=== PATIENT | female | born 1940 | race Caucasian/White ===

== ENCOUNTER 2022-02-19 12:54 | Outpatient (CLI) | payer MEDICARE, BC, SELFPAY | END 2022-02-19 12:55 | disposition home or self-care (01) | LOC: WOUND 12:55 | PROVIDERS: PCP Physician Assistant Medical; Visit Provider Nurse Practitioner Family | DX: I70.234 Atherosclerosis of native arteries of right leg with ulceration of heel and midfoot (principal); L97.415 Non-pressure chronic ulcer of right heel and midfoot with muscle involvement without evidence of necrosis; I87.311 Chronic venous hypertension (idiopathic) with ulcer of right lower extremity; L97.812 Non-pressure chronic ulcer of other part of right lower leg with fat layer exposed; Q82.0 Hereditary lymphedema | CPT/HCPCS: 97597; 99213 ==

== ENCOUNTER 2022-02-26 09:10 | Outpatient (CLI) | payer MEDICARE, BC, SELFPAY ==
--- NOTE | 2022-02-26 09:30 | CRLHL7_ITS ---
For Patients: As a result of the Century Cures Act, medical imaging exams and procedure reports are released immediately into your electronic medical record. You may view this report before your referring provider. If you have questions, please contact your health care provider. Indication: ABSCESS OF RIGHT ACHILLES TENDON Technique: Noncontrast CT right ankle Please note that all CT scans at this facility use dose modulation, iterative reconstruction, and/or weight-based dosing when appropriate to reduce radiation dose to as low as reasonably achievable. Comparison: 11/09/2021 Findings: Persistent thickening of the Achilles tendon noted although the previously identified collection of fluid within the Achilles tendon has significantly decreased in size. Residual tiny areas of decreased attenuation located within the Achilles tendon are present representing residual areas of edema/inflammation. The overlying skin is thickened, as before. Dense vascular calcifications are present. Subcutaneous edema is present. There is no evidence of osteonecrosis or osteomyelitis. No fracture. Osteoporosis is noted. Impression: Interval near complete resolution of abscess within the Achilles tendon compared to the prior study. Mild residual areas of fluid/edema are present within the tendon. Persistent thickening of the Achilles tendon is noted. Please note that all CT scans at this facility use dose modulation, iterative reconstruction, and/or weight-based dosing when appropriate to reduce radiation dose to as low as reasonably achievable. Dictated by Gio Nolan MD @ 02/26/2022 12:48:26 PM (Electronically Signed)
== END 2022-02-26 09:11 | disposition home or self-care (01) ==
PROVIDERS: PCP Physician Assistant Medical; Visit Provider Physician Assistant Surgical
DX: L03.115 Cellulitis of right lower limb (principal)
CPT/HCPCS: 11042; 73700

== ENCOUNTER 2022-03-05 10:26 | Outpatient (CLI) | payer MEDICARE, BC, SELFPAY | END 2022-03-05 10:27 | disposition home or self-care (01) | LOC: WOUND 10:26 | PROVIDERS: PCP Physician Assistant Medical; Visit Provider Physician Assistant Surgical | DX: I70.235 Atherosclerosis of native arteries of right leg with ulceration of other part of foot (principal); L97.518 Non-pressure chronic ulcer of other part of right foot with other specified severity | CPT/HCPCS: 11043 ==

== ENCOUNTER 2022-03-12 10:48 | Outpatient (CLI) | payer MEDICARE, BC, SELFPAY | END 2022-03-12 10:49 | disposition home or self-care (01) | LOC: WOUND 10:49 | PROVIDERS: PCP Physician Assistant Medical; Visit Provider Physician Assistant Surgical | DX: I70.235 Atherosclerosis of native arteries of right leg with ulceration of other part of foot (principal); L97.518 Non-pressure chronic ulcer of other part of right foot with other specified severity | CPT/HCPCS: 11043 ==

== ENCOUNTER 2022-03-19 10:46 | Outpatient (CLI) | payer MEDICARE, BC, SELFPAY | END 2022-03-19 10:47 | disposition home or self-care (01) | PROVIDERS: PCP Physician Assistant Medical; Visit Provider Physician Assistant Surgical | DX: I70.234 Atherosclerosis of native arteries of right leg with ulceration of heel and midfoot (principal); L97.418 Non-pressure chronic ulcer of right heel and midfoot with other specified severity | CPT/HCPCS: 11043 ==

== ENCOUNTER 2022-03-26 10:47 | Outpatient (CLI) | payer MEDICARE, BC, SELFPAY | END 2022-03-26 10:48 | disposition home or self-care (01) | LOC: WOUND 10:47 | PROVIDERS: PCP Physician Assistant Medical; Visit Provider Physician Assistant Surgical | DX: L97.418 Non-pressure chronic ulcer of right heel and midfoot with other specified severity (principal); I70.234 Atherosclerosis of native arteries of right leg with ulceration of heel and midfoot | CPT/HCPCS: 11043 ==

== ENCOUNTER 2022-04-02 10:55 | Outpatient (CLI) | payer MEDICARE, BC, SELFPAY | END 2022-04-02 10:56 | disposition home or self-care (01) | LOC: WOUND 10:56 | PROVIDERS: PCP Physician Assistant Medical; Visit Provider Physician Assistant Surgical | DX: I70.234 Atherosclerosis of native arteries of right leg with ulceration of heel and midfoot (principal); L97.418 Non-pressure chronic ulcer of right heel and midfoot with other specified severity; I87.311 Chronic venous hypertension (idiopathic) with ulcer of right lower extremity; L97.812 Non-pressure chronic ulcer of other part of right lower leg with fat layer exposed | CPT/HCPCS: 11042; 11043; 11045 ==

== ENCOUNTER 2022-04-09 10:54 | Outpatient (CLI) | payer MEDICARE, BC, SELFPAY | END 2022-04-09 10:55 | disposition home or self-care (01) | LOC: WOUND 10:54 | PROVIDERS: PCP Physician Assistant Medical; Visit Provider Physician Assistant Surgical | DX: I70.234 Atherosclerosis of native arteries of right leg with ulceration of heel and midfoot (principal); L97.418 Non-pressure chronic ulcer of right heel and midfoot with other specified severity; I87.311 Chronic venous hypertension (idiopathic) with ulcer of right lower extremity; L97.812 Non-pressure chronic ulcer of other part of right lower leg with fat layer exposed | CPT/HCPCS: 11042; 11043 ==

== ENCOUNTER 2022-04-16 10:55 | Outpatient (CLI) | payer MEDICARE, BC, SELFPAY | END 2022-04-16 10:56 | disposition home or self-care (01) | PROVIDERS: PCP Physician Assistant Medical; Visit Provider Physician Assistant Surgical | DX: I70.244 Atherosclerosis of native arteries of left leg with ulceration of heel and midfoot (principal); L97.422 Non-pressure chronic ulcer of left heel and midfoot with fat layer exposed | CPT/HCPCS: 11042 ==

== ENCOUNTER 2022-04-23 09:48 | Outpatient (CLI) | payer MEDICARE, BC, SELFPAY | END 2022-04-23 09:49 | disposition home or self-care (01) | LOC: WOUND 09:48 | PROVIDERS: PCP Physician Assistant Medical; Visit Provider Physician Assistant Surgical | DX: I70.234 Atherosclerosis of native arteries of right leg with ulceration of heel and midfoot (principal); L97.418 Non-pressure chronic ulcer of right heel and midfoot with other specified severity | CPT/HCPCS: 11042 ==

== ENCOUNTER 2022-04-30 09:10 | Outpatient (CLI) | payer MEDICARE, BC, SELFPAY | END 2022-04-30 09:11 | disposition home or self-care (01) | LOC: WOUND 09:10 | PROVIDERS: PCP Physician Assistant Medical; Visit Provider Physician Assistant Surgical | DX: I70.234 Atherosclerosis of native arteries of right leg with ulceration of heel and midfoot (principal); L97.418 Non-pressure chronic ulcer of right heel and midfoot with other specified severity | CPT/HCPCS: 11042 ==

== ENCOUNTER 2022-05-07 10:58 | Outpatient (CLI) | payer MEDICARE, BC, SELFPAY | END 2022-05-07 10:59 | disposition home or self-care (01) | LOC: WOUND 10:58 | PROVIDERS: PCP Physician Assistant Medical; Visit Provider Physician Assistant Surgical | DX: I70.234 Atherosclerosis of native arteries of right leg with ulceration of heel and midfoot (principal); L97.418 Non-pressure chronic ulcer of right heel and midfoot with other specified severity | CPT/HCPCS: 15271; 15275; Q4128 ==

== ENCOUNTER 2022-05-14 10:13 | Outpatient (CLI) | payer MEDICARE, BC, SELFPAY | END 2022-05-14 10:14 | disposition home or self-care (01) | LOC: WOUND 10:13 | PROVIDERS: PCP Physician Assistant Medical; Visit Provider Physician Assistant Surgical | DX: I70.234 Atherosclerosis of native arteries of right leg with ulceration of heel and midfoot (principal); L97.418 Non-pressure chronic ulcer of right heel and midfoot with other specified severity; I87.311 Chronic venous hypertension (idiopathic) with ulcer of right lower extremity; L97.812 Non-pressure chronic ulcer of other part of right lower leg with fat layer exposed | CPT/HCPCS: 11042 ==

== ENCOUNTER 2022-05-21 10:30 | Outpatient (CLI) | payer MEDICARE, BC, SELFPAY | END 2022-05-21 10:31 | disposition home or self-care (01) | LOC: WOUND 10:31 | PROVIDERS: PCP Physician Assistant Medical; Visit Provider Physician Assistant Surgical | DX: L89.614 Pressure ulcer of right heel, stage 4 (principal) | CPT/HCPCS: 15275; C5275; Q4121 ==

== ENCOUNTER 2022-05-28 10:24 | Outpatient (CLI) | payer MEDICARE, BC, SELFPAY | END 2022-05-28 10:25 | disposition home or self-care (01) | LOC: WOUND 10:25 | PROVIDERS: PCP Physician Assistant Medical; Visit Provider Physician Assistant Surgical | DX: I87.311 Chronic venous hypertension (idiopathic) with ulcer of right lower extremity (principal); L97.812 Non-pressure chronic ulcer of other part of right lower leg with fat layer exposed; I70.234 Atherosclerosis of native arteries of right leg with ulceration of heel and midfoot; L97.418 Non-pressure chronic ulcer of right heel and midfoot with other specified severity | CPT/HCPCS: 87070; 97597 ==

== ENCOUNTER 2022-06-04 09:57 | Outpatient (CLI) | payer MEDICARE, BC, SELFPAY | END 2022-06-04 09:58 | disposition home or self-care (01) | LOC: WOUND 09:57 | PROVIDERS: PCP Physician Assistant Medical; Visit Provider Physician Assistant Surgical | DX: L89.894 Pressure ulcer of other site, stage 4 (principal) | CPT/HCPCS: 11042 ==

== ENCOUNTER 2022-06-11 10:29 | Outpatient (CLI) | payer MEDICARE, BC, SELFPAY | END 2022-06-11 10:30 | disposition home or self-care (01) | LOC: WOUND 10:29 | PROVIDERS: PCP Physician Assistant Medical; Visit Provider Physician Assistant Surgical | DX: L89.614 Pressure ulcer of right heel, stage 4 (principal) | CPT/HCPCS: 11042 ==

== ENCOUNTER 2022-06-18 10:14 | Outpatient (CLI) | payer MEDICARE, BC, SELFPAY | END 2022-06-18 10:15 | disposition home or self-care (01) | LOC: WOUND 10:14 | PROVIDERS: PCP Physician Assistant Medical; Visit Provider Physician Assistant Surgical | DX: L89.614 Pressure ulcer of right heel, stage 4 (principal); I87.311 Chronic venous hypertension (idiopathic) with ulcer of right lower extremity; L97.219 Non-pressure chronic ulcer of right calf with unspecified severity | CPT/HCPCS: 99213 ==

== ENCOUNTER 2022-06-25 12:48 | Outpatient (CLI) | payer MEDICARE, BC, SELFPAY | END 2022-06-25 12:49 | disposition home or self-care (01) | LOC: WOUND 12:49 | PROVIDERS: PCP Physician Assistant Medical; Visit Provider Physician Assistant Surgical | DX: S81.801A Unspecified open wound, right lower leg, initial encounter (principal) | CPT/HCPCS: 11042 ==

== ENCOUNTER 2022-07-02 10:18 | Outpatient (CLI) | payer MEDICARE, BC, SELFPAY | END 2022-07-02 10:19 | disposition home or self-care (01) | LOC: WOUND 10:19 | PROVIDERS: PCP Physician Assistant Medical; Visit Provider Physician Assistant Surgical | DX: I70.242 Atherosclerosis of native arteries of left leg with ulceration of calf (principal); L97.228 Non-pressure chronic ulcer of left calf with other specified severity; I87.311 Chronic venous hypertension (idiopathic) with ulcer of right lower extremity; L97.818 Non-pressure chronic ulcer of other part of right lower leg with other specified severity | CPT/HCPCS: 11042 ==

== ENCOUNTER 2022-07-16 10:35 | Outpatient (CLI) | payer MEDICARE, BC, SELFPAY | END 2022-07-16 10:36 | disposition home or self-care (01) | LOC: WOUND 10:36 | PROVIDERS: PCP Physician Assistant Medical; Visit Provider Physician Assistant Surgical | DX: I87.311 Chronic venous hypertension (idiopathic) with ulcer of right lower extremity (principal); L97.818 Non-pressure chronic ulcer of other part of right lower leg with other specified severity; Q82.0 Hereditary lymphedema | CPT/HCPCS: 11042; 11045 ==

== ENCOUNTER 2022-08-13 10:15 | Outpatient (CLI) | payer MEDICARE, BC, SELFPAY | END 2022-08-13 10:16 | disposition home or self-care (01) | LOC: WOUND 10:15 | PROVIDERS: Visit Provider Physician Assistant Surgical | DX: I87.311 Chronic venous hypertension (idiopathic) with ulcer of right lower extremity (principal); L97.212 Non-pressure chronic ulcer of right calf with fat layer exposed | CPT/HCPCS: 11042; 11045 ==

== ENCOUNTER 2022-09-03 10:21 | Outpatient (CLI) | payer MEDICARE, BC, SELFPAY | END 2022-09-03 10:22 | disposition home or self-care (01) | LOC: WOUND 10:21 | PROVIDERS: Visit Provider Physician Assistant Surgical | DX: I83.012 Varicose veins of right lower extremity with ulcer of calf (principal); L97.212 Non-pressure chronic ulcer of right calf with fat layer exposed; I87.311 Chronic venous hypertension (idiopathic) with ulcer of right lower extremity; L97.819 Non-pressure chronic ulcer of other part of right lower leg with unspecified severity | CPT/HCPCS: 11042; 11045 ==

== ENCOUNTER 2022-09-08 10:30 | Outpatient (RCR) | payer MEDICARE, BC, SELFPAY ==
--- NOTE | 2022-07-20 13:48 | PT.OPE ---
PT [place] Outpatient Eval PT [facility] Outpatient Eval Start: 07/20/22 13:18 Freq: Status: Active Protocol: Document 07/20/22 13:18 LUTHER (Rec: 07/20/22 13:41 ONUR Desktop) E-signed By Sergey Ahmadi, PT, ATC Physical Therapy Outpatient Evaluation Insurance Information Insurance Name Medicare B Insurance Information/Comments Medicare BC BS Medical Diagnosis M76.61 Achilles tendinitis, right leg Treating Diagnosis R leg/ankle pain Referring MD Daya Dos Santos PA-C Subjective Subjective One year history of wound healing for ulcers on the back of the R lower leg and heel. Has noticed increased soreness and difficulty with ankle movement as a result of all the immobility and resting that has been required. Taking pain medication 4x per day along with Gapapentin. Lives with her in a care home residence. Pain Comments 04/24 with direct contact to any portion of wound along posterior lower leg or calcaneus. 0-1/10 at rest 10 with walking or active movement Date of Last Physician Visit 06/25/22 Current Work Status Retired Preferred Name Pat Precautions Weight Bearing Status Full Weight Bearing Objective Range of Motion SLR R 65, L 85 Ankle DF R -2, L 0 Strength Ankle PF R 4/5, L 5/5 DF, INV, EVER R 4-/5, L 5/5 Palpation Very tender on entirety of R posterior calf, achilles and calcaneus Reduced achilles tendon mobility for elongation or side gliding. Balance & Gait Dependent upon walker. Gait exhibits decreased stride length, absent toe off on R, forward trunk flexion position . Posture Bandaged over entire R lower leg since she is still receiving wound care. Heavy scarring-scabbing exists over posterior calcaneus of right leg. R terminal knee extension deficit of 12 degrees. L knee ext to 0. Assessment Assessment/Impression Sujey is a pleasant 81 year old who is well known in PT from previous care for her R shoulder. She was referred to PT to address mobility restrictions in the R achilles tendon along with pain. She has undergone a year of wound healing to treat ulcers on the back of the lower leg and posterior foot form Atherosclerosis. Contracture of the R achilles has occurred over the past six months from her inactivity and limited WB 'ing. Tightness exists throughout the entire R posterior leg which contributes to her limitation with R ankle DF. Limited ability for direct contact is permitted at any part of the R lower leg or foot due to heightened sensitivity as a result of her wound. Skilled PT is highly recommended to maintain ability for standing and walking. PT needs to address tightness in the entire R posterior leg, facilitate some degree of achilles mobility through scar tissue reduction and mobilization while improving active motion in the R ankle during open and closed chain environments. She has always been a willing participant with her therapy so I wouldn't expect her motivation for improvement to be different at this time. Primary Functional Limitations R ankle ROM and strength. Walking ability. Plan of Care Rehabilitation Potential Fair Physical Therapy Goals 1.Improve R ankle DF: active to 0, passive to 3-4 degrees. 2.Increase R stride length in gait through improved R posterior leg flexibility, SLR to 70 degrees or greater. 3.Improve achilles mobility permitting ease with active PF , DF and alutiiq exercises to facilitate improved circulation to lower leg for wound healing. Coordination/Communication With Referral Source Treatment Plan/Direct Interventions Gait Training,Joint Mobilization,Manual Therapy, Therapeutic Exercises Frequency/Duration 1x per week 12-16 weeks Patient Will Be Discharged From Therapy Independent w/HEP, Independently Progressing Evaluation Billing Untimed Code Treatment Minutes 30 PT Eval No Charge No Complexity Low Certification Information Initial Certification Date 07/20/22 Ending Certification Date 10/18/22 Provider Signature Shows Agreement With POC & Medical Necessity Physician Signature & Date Requested Please Sign/Date Here Physician Comment/Change : Physician NPI Number #
== END 2023-03-03 23:59 | disposition home or self-care (01) ==
PROVIDERS: Visit Provider Physician Assistant Surgical
DX: M76.61 Achilles tendinitis, right leg (principal); Z51.89 Encounter for other specified aftercare
CPT/HCPCS: 97110; 97140; 97161

== ENCOUNTER 2023-01-26 12:26 | Outpatient (CLI) | payer MEDICARE, BC, SELFPAY | END 2023-01-26 12:27 | disposition home or self-care (01) | PROVIDERS: Visit Provider Surgery | DX: I87.333 Chronic venous hypertension (idiopathic) with ulcer and inflammation of bilateral lower extremity (principal); L97.828 Non-pressure chronic ulcer of other part of left lower leg with other specified severity; L97.811 Non-pressure chronic ulcer of other part of right lower leg limited to breakdown of skin; I73.9 Peripheral vascular disease, unspecified; G89.29 Other chronic pain | CPT/HCPCS: 97597; 97598; 99213 ==

== ENCOUNTER 2023-02-02 14:13 | Outpatient (CLI) | payer MEDICARE, BC, SELFPAY | END 2023-02-02 14:14 | disposition home or self-care (01) | LOC: WOUND 14:13 | PROVIDERS: Visit Provider Surgery | DX: I87.331 Chronic venous hypertension (idiopathic) with ulcer and inflammation of right lower extremity (principal); L97.811 Non-pressure chronic ulcer of other part of right lower leg limited to breakdown of skin | CPT/HCPCS: 97597; 97598 ==

== ENCOUNTER 2023-02-09 14:02 | Outpatient (CLI) | payer MEDICARE, BC, SELFPAY | END 2023-02-09 14:03 | disposition home or self-care (01) | LOC: WOUND 14:02 | PROVIDERS: Visit Provider Surgery | DX: I87.331 Chronic venous hypertension (idiopathic) with ulcer and inflammation of right lower extremity (principal); L97.811 Non-pressure chronic ulcer of other part of right lower leg limited to breakdown of skin; G89.29 Other chronic pain; I73.9 Peripheral vascular disease, unspecified | CPT/HCPCS: 97597; 97598 ==

== ENCOUNTER 2023-03-01 14:45 | Outpatient (CLI) | payer MEDICARE, BC, SELFPAY | END 2023-03-01 14:46 | disposition home or self-care (01) | LOC: WOUND 14:45 | PROVIDERS: Visit Provider Nurse Practitioner Family | DX: I87.331 Chronic venous hypertension (idiopathic) with ulcer and inflammation of right lower extremity (principal); L97.812 Non-pressure chronic ulcer of other part of right lower leg with fat layer exposed; L97.818 Non-pressure chronic ulcer of other part of right lower leg with other specified severity; I73.9 Peripheral vascular disease, unspecified | CPT/HCPCS: 97597; 97598 ==

== ENCOUNTER 2023-03-09 14:45 | Outpatient (CLI) | payer MEDICARE, BC, SELFPAY | END 2023-03-09 14:46 | disposition home or self-care (01) | LOC: WOUND 14:45 | PROVIDERS: Visit Provider Surgery | DX: I87.331 Chronic venous hypertension (idiopathic) with ulcer and inflammation of right lower extremity (principal); L97.211 Non-pressure chronic ulcer of right calf limited to breakdown of skin; L97.811 Non-pressure chronic ulcer of other part of right lower leg limited to breakdown of skin; I73.9 Peripheral vascular disease, unspecified; G89.29 Other chronic pain | CPT/HCPCS: 97597; 97598 ==

== ENCOUNTER 2023-03-16 14:53 | Outpatient (CLI) | payer MEDICARE, BC, SELFPAY | END 2023-03-16 14:54 | disposition home or self-care (01) | LOC: WOUND 14:53 | PROVIDERS: Visit Provider Surgery | DX: I87.331 Chronic venous hypertension (idiopathic) with ulcer and inflammation of right lower extremity (principal); L97.811 Non-pressure chronic ulcer of other part of right lower leg limited to breakdown of skin; I73.9 Peripheral vascular disease, unspecified; G89.29 Other chronic pain | CPT/HCPCS: 97597; 97598 ==

== ENCOUNTER 2023-03-22 14:08 | Outpatient (CLI) | payer MEDICARE, BC, SELFPAY ==
--- OUTSIDE RECORDS SUMMARY | 2023-03-22 14:14 | XMS_ITS | CCD ---
Author Name Shawanda Leahy Address [address] [facility] [address] [place] [address] Phone Organization [facility] Phone Care Team Providers Care Radiographer Mammographer Name Role Phone Shawanda Leahy Primary Care Provider Unava ilable Unavailable Chronic Care Management Unavaila ble Summary Purpose DataExchange Insurance Providers Payer name Policy type / Coverage type Covered democrat ID Effective Begin Date Effective End Date Medicare [place] Medicare Part B [id number] Unknown BCBS of [place] Medicare Part B [id number] Unk nown Family history Runs in the family Diagnosis Age At Onset Coronary Artery Disease (CAD) Unknown Father Diagnosis Age At Onset Thyroid Unknown Mother Diagnosis Age At Onset Diabetes Unknown Social History Social History Element Codes Description Effec tive Dates Marital status Unknown 02/21/[address]: 0567611 Former smoker Quit 1984 02/21/[address]: 235975242 No Alcohol Consum ption 02/21/2023 Allergies, Adverse Reactions, Alerts Substance Reaction Codes Entered Date Inactivated Date Status Sulfa Unknown 02/14/2023 No Inactive Date Ac tive ibuprofen RxNorm: 5640 02/14/2023 No Inactive Date Active Problems Condition Codes Effective Dates Condition St atus Basal cell carcinoma ICD-10: C44.91 ICD-9: 173.91 02/23/2023 Active Chronic pain disorder ICD-10: G89.4 ICD-9: 338.4 02/23/2023 Active Chronic ulcer of right leg ICD-10: L97.9 19 ICD-9: 707.10 02/23/2023 Active Collagenous colitis ICD-10: K52.831 ICD-9: 558.9 02/23/2023 Active History of cellulitis ICD-10: Z87.2 ICD-9: V13.3 02/23/2023 Active History of fracture of patella ICD-10: Z 87.81 ICD-9: V15.51 02/23/2023 Active HLD (hyperlipidemia) ICD-10: E78.5 ICD-9: 272.4 02/23/2023 Active HTN (hypertension) ICD-10: I10 ICD-9: 401.9 02/23/2023 Active Mammogram normal ICD-10: ESC7325 ICD-9: V72.5 02/23/2023 Active Osteoarthritis ICD-10: M19.90 ICD-9: 715.90 02/23/2023 Active Osteoporosis ICD-10: M81.0 ICD-9: 733.00 02/23/2023 Active Peripheral vascular disease ICD-10: I73. 9 ICD-9: 443.9 02/23/2023 Active Presbyopia ICD-10: H52.4 ICD-9: 367.4 02/23/2023 Active Ruptured cerebral aneurysm ICD-10: I60.7 ICD-9: 430 02/23/2023 Active S/P trigger finger release ICD-10: Z98.8 90 ICD-9: V45.89 02/23/2023 Active Medications Medication Codes Instructions Start Date Stop Date Status Fill Instructions nabumetone 750 mg tablet RxNorm: 678186 Take 1 Tablet(s) Oral BID 3 02/17/20 24 Active mirtazapine 7.5 mg tablet RxNorm: 581093 Take 1 Tablet(s) Oral QHS every night at bedtime 3 02/17/20 24 Active Colace 2-In-1 8.6 mg-50 mg tablet RxNorm: 7141927 Take 1 Tablet(s) Oral BID as needed 3 06/22/20 23 Active fluticasone propionate 50 mcg/actuation nasal spray,suspension RxNorm: 1377399 Tillar 1 Tillar Nasal BID both nostrils 3 02/17/20 24 Active atorvastatin 20 mg tablet RxNorm: 805071 Take 1 Tablet(s) Oral QHS every night at bedtime QD - Daily 3 02/17/20 24 Active tramadol 50 mg tablet RxNorm: 127246 Give 1 Tablet(s) Oral TID as needed for pain 3 08/21/19 24 Active amlodipine 5 mg tablet RxNorm: 547269 Take 1 Tablet(s) Oral QD 3 02/17/20 24 Active gabapentin 600 mg tablet RxNorm: 272868 Take 1 Tablet(s) Oral TID 3 02/17/20 24 Active furosemide 20 mg tablet RxNorm: 450522 Take 1 Tablet(s) Oral QD 3 02/17/20 24 Active Calcium 600 + D(3) 600 mg-10 mcg (400 unit) tablet RxNorm: 688825 Take 1 Tablet(s) Oral QD 3 02/17/20 24 Active methocarbamol 500 mg tablet RxNorm: 622275 Take 1 Tablet(s) Oral TID as needed 3 No Stop Date Active lisinopril 30 mg tablet RxNorm: 083876 Take 1 Tablet(s) Oral QD 3 02/17/20 24 Active finasteride 5 mg tablet RxNorm: 470268 Take 1/2 Tablet(s) Oral QD 3 02/17/20 24 Active diclofenac 1 % topical gel RxNorm: 197876 Apply 2 Application Topical QID 3 02/17/20 24 Active alendronate 70 mg tablet RxNorm: 702416 Take 1 Tablet(s) Oral QW once a week in the morning with a full glass of water, 30 minutes prior to any food, sit up for 30 minutes after administration 3 02/17/20 24 Active dx: osteoporosis acetaminophen 500 mg tablet RxNorm: 185821 Take 1 Tablet(s) Oral TID /fever 3 02/17/20 24 Active Thera-M oral RxNorm: oral 3 Active Medication Administered No Medication Administered data Immunizations Vaccine Codes Dose Date Status Covid-19 ([employer] mR NA, LNP-S, Bivalent Booster PF, 30 mcg/0.3 mL dose, dexter-sucrose) CVX: 300 1.0 Influenza CVX: 197 1.0 04/16/2022 Covid-19 (Adult) CVX: 207 1.0 01/07/2022 Covid-19 (Adult) CVX: 208 1.0 06/11/2021 Influenza CVX: 205 1.0 05/19/2021 Covid-19 (Adult) CVX: 208 1.0 10/18/2020 Covid-19 (Adult) CVX: 208 1.0 09/27/2020 Zostavax CVX: 187 1.0 03/15/2019 Zoster CVX: 187 1.0 03/15/2019 Zostavax CVX: 187 1.0 01/13/2019 Zoster CVX: 187 1.0 01/13/2019 Pneumococcal CVX: 133 1.0 12/02/2014 Zostavax CVX: 121 1.0 03/26/2010 Zoster CVX: 121 1.0 03/26/2010 Procedures Procedure Codes Date SYS BP LESS 140 CPT-4: G8752 02/23/2023 MUELLER BP LESS 90 CPT-4: G8754 02/23/2023 Vital Signs Date Vital 02/23/2023 Blood Pressure 1: 108/62 Code: 8480-6 BMI: 23.6 Code: 08621-8 Heart Rate 1: 88 bpm Code: 8867-4 Height: 5'3 Code: 8302-2 Respiratory Rate: 16 bpm Temperature: 36.2 (C) / 97.1 (F) Weight: 133 lbs 3 oz Code: 3141-9 Reason For Visit No Reason For Visit data Encounters Encounter Performer Location Location Address Codes Date ([address]) Home or 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[employer] - Moderate Level, 60 mins Diagnosis: HTN (hypertension)[ICD 10: I10] Diagnosis: HLD (hyperlipidemia)[I CD10: E78.5] Diagnosis: Osteoporosis[ICD10 : M81.0] Diagnosis: Basal cell carcinoma[ICD10: C44.91] Diagnosis: Ruptured cerebral aneurysm[ICD10: I60.7] Diagnosis: Osteoarthritis[ICD 10: M19.90] Diagnosis: History of fracture of patella[ICD10: Z87.81] Diagnosis: Chronic pain disorder[ICD10: G89.4] Diagnosis: Peripheral vascular disease[ICD10: I73.9] Diagnosis: S/P trigger finger release[ICD10: Z98.890] Diagnosis: Chronic ulcer of right leg[ICD10: L97.919] Diagnosis: History of cellulitis[ICD10: Z87.2] Diagnosis: Presbyopia[ICD10: H52.4] Diagnosis: Collagenous colitis[ICD10: K52.831] Diagnosis: Mammogram normal[ICD10: ILM2854] Shawanad Salamanca [facility] [address] [place] [address] CPT-4: 03401 02/23/2023 Plan of Care Planned Activity Notes Codes Status Date Patient Education: Patient Medication Summary Completed 02/23/2023 Patient Education: Influenza Vaccine Completed 02/23/2023 Instructions Comment Date Pat has resided with her hus band at [facility] since 12/2021, previously lived in [place], [place]. Patient grew up in [place]. Has 3 daughters.PMH: Chronic ulceration of right leg, history of cellulitis of right leg, ruptured cerebral aneurysm s/p syncope, HTN, HLD, osteoporosis, osteoarthritis, post herpetic neuralgia, varicose veins, chronic pain disorder, trigger finger release of right thumb, presbyopia, collagenous collitis, and basal cell carcinoma.Primary contact: Gloria White (Daughter)Code Status: DNR/SelectLab Schedule: Mar/SepSpecialists[place]), Mammogram (06/2020), SLUMS (09/2022) 02/25/2023 Ruptured cerebral aneurysm - Denies residual s/s, continue to monitor Chronic Pain - Daughter reports patient has c/o pain for a long time. States patient is active and used to be managed on oxycodone, which family does not want re-started in the future. Continue on tramadol, gabapentin, and Tylenol for pain management. Osteoporosis - Left shoulder joint is difficult for patient to move. Requires assistance of to pull up pants after using the bathroom. Cannot get surgery on left shoulder until right leg wounds are healed. Continue current pain regimen and monitor. Chronic ulcer of right leg - Continues to follow with SN wound care twice weekly and goes to wound clinic in [place] weekly although could not get an appointment this week or last week. Daughter has no further concerns and plan is to continue current wound care regimen until healed. . 02/23/2023
== END 2023-03-22 14:09 | disposition home or self-care (01) ==
LOC: WOUND 14:08
PROVIDERS: Visit Provider Nurse Practitioner Family
DX: I87.331 Chronic venous hypertension (idiopathic) with ulcer and inflammation of right lower extremity (principal); L97.819 Non-pressure chronic ulcer of other part of right lower leg with unspecified severity; I73.9 Peripheral vascular disease, unspecified
CPT/HCPCS: 99213

== ENCOUNTER 2023-03-30 14:47 | Outpatient (CLI) | payer MEDICARE, BC, SELFPAY | END 2023-03-30 14:48 | disposition home or self-care (01) | LOC: WOUND 14:48 | PROVIDERS: Visit Provider Surgery | DX: I87.331 Chronic venous hypertension (idiopathic) with ulcer and inflammation of right lower extremity (principal); L97.811 Non-pressure chronic ulcer of other part of right lower leg limited to breakdown of skin | CPT/HCPCS: 97597; 97598 ==

== ENCOUNTER 2023-04-13 14:55 | Outpatient (CLI) | payer MEDICARE, BC, SELFPAY ==
--- OUTSIDE RECORDS SUMMARY | 2023-04-13 15:01 | XMS_ITS | CCD ---
Author Name Shawanda Leahy Address [address] [facility] [address] [place] [address] Phone Organization [facility] Phone Care Team Providers Care Fleet Administrative Assistant Name Role Phone Shawanda Leahy Primary Care Provider Unava ilable Unavailable Chronic Care Management Unavaila ble Summary Purpose DataExchange Insurance Providers Payer name Policy type / Coverage type Covered green party ID Effective Begin Date Effective End Date Medicare [place] Medicare Part B [id number] Unknown BCBS of [place] Medicare Part B [id number] Unk nown Family history Runs in the family Diagnosis Age At Onset Coronary Artery Disease (CAD) Unknown Father Diagnosis Age At Onset Thyroid Unknown Mother Diagnosis Age At Onset Diabetes Unknown Social History Social History Element Codes Description Effec tive Dates Marital status Unknown 02/21/[address]: 5468517 Former smoker Quit 1984 02/21/[address]: 017367204 No Alcohol Consum ption 02/21/2023 Allergies, Adverse Reactions, Alerts Substance Reaction Codes Entered Date Inactivated Date Status tramadol RxNorm: 51255 04/05/2023 No Inactive Librado e Active Sulfa Unknown 02/14/2023 No Inactive Date Ac tive ibuprofen RxNorm: 5640 02/14/2023 No Inactive Date Active Problems Condition Codes Effective Dates Condition St atus Chronic pain disorder ICD-10: G89.4 ICD-9: 338.4 04/05/2023 Active Chronic ulcer of right leg ICD-10: L97.9 19 ICD-9: 707.10 04/05/2023 Active Dementia ICD-10: F03.90 ICD-9: 294.20 04/05/2023 Active Osteoarthritis ICD-10: M19.90 ICD-9: 715.90 04/05/2023 Active Basal cell carcinoma ICD-10: C44.91 ICD-9: 173.91 02/23/2023 Active Collagenous colitis ICD-10: K52.831 ICD-9: 558.9 02/23/2023 Active History of cellulitis ICD-10: Z87.2 ICD-9: V13.3 02/23/2023 Active History of fracture of patella ICD-10: Z 87.81 ICD-9: V15.51 02/23/2023 Active HLD (hyperlipidemia) ICD-10: E78.5 ICD-9: 272.4 02/23/2023 Active HTN (hypertension) ICD-10: I10 ICD-9: 401.9 02/23/2023 Active Mammogram normal ICD-10: FLW1667 ICD-9: V72.5 02/23/2023 Active Osteoporosis ICD-10: M81.0 ICD-9: 733.00 02/23/2023 Active Peripheral vascular disease ICD-10: I73. 9 ICD-9: 443.9 02/23/2023 Active Presbyopia ICD-10: H52.4 ICD-9: 367.4 02/23/2023 Active Ruptured cerebral aneurysm ICD-10: I60.7 ICD-9: 430 02/23/2023 Active S/P trigger finger release ICD-10: Z98.8 90 ICD-9: V45.89 02/23/2023 Active Medications Medication Codes Instructions Start Date Stop Date Status Fill Instructions nabumetone 500 mg tablet RxNorm: 302413 Take 1 Tablet(s) Oral QAM every morning with 750mg tablet to equal 1,250mg 04/05/20 23 023 Active Senokot-S 8.6 mg-50 mg tablet RxNorm: 8974406 Take 1 Tablet(s) Oral BID as needed for constipation 04/04/20 No Stop Date Active acetic acid 0.25 % irrigation solution RxNorm: 248574 Irrigation use as directed soaking wounds daily for 10 min 04/04/20 23 No Stop Date Active triamcinolone acetonide 0.1 % topical cream RxNorm: 2824790 Topical apply topically w/nystatin to affected area daily PRN 04/04/20 23 No Stop Date Active nabumetone 750 mg tablet RxNorm: 654019 Take 1 Tablet(s) Oral BID 02/24/20 Active mirtazapine 7.5 mg tablet RxNorm: 405088 Take 1 Tablet(s) Oral QHS every night at bedtime 02/24/20 Active fluticasone propionate 50 mcg/actuation nasal spray,suspension RxNorm: 9074829 [place] 1 [place] Nasal BID both nostrils 02/24/20 Active atorvastatin 20 mg tablet RxNorm: 102565 Take 1 Tablet(s) Oral QHS every night at bedtime QD - Daily 02/24/20 Active tramadol 50 mg tablet RxNorm: 357682 Give 1 Tablet(s) Oral TID as needed for pain 02/24/20 Active amlodipine 5 mg tablet RxNorm: 902090 Take 1 Tablet(s) Oral QD 02/24/20 Active gabapentin 600 mg tablet RxNorm: 561559 Take 1 Tablet(s) Oral TID 02/24/20 Active furosemide 20 mg tablet RxNorm: 962933 Take 1 Tablet(s) Oral QD 02/24/20 Active Calcium 600 + D(3) 600 mg-10 mcg (400 unit) tablet RxNorm: 614631 Take 1 Tablet(s) Oral QD 02/24/20 Active methocarbamol 500 mg tablet RxNorm: 947705 Take 1 Tablet(s) Oral TID as needed 02/24/20 No Stop Date Active lisinopril 30 mg tablet RxNorm: 388208 Take 1 Tablet(s) Oral QD 02/24/20 024 Active finasteride 5 mg tablet RxNorm: 064466 Take 1/2 Tablet(s) Oral QD 02/24/20 Active diclofenac 1 % topical gel RxNorm: 238914 Apply 2 Application Topical QID 02/24/20 Active alendronate 70 mg tablet RxNorm: 067876 Take 1 Tablet(s) Oral QW once a week in the morning with a full glass of water, 30 minutes prior to any food, sit up for 30 minutes after administration 02/24/20 024 Active dx: osteoporosis acetaminophen 500 mg tablet RxNorm: 275103 Take 1 Tablet(s) Oral TID /fever 02/24/20 024 Active Colace 2-In-1 8.6 mg-50 mg tablet RxNorm: 0647767 Take 1 Tablet(s) Oral BID as needed 02/24/20 023 Inactive Thera-M oral RxNorm: oral 02/24/20 Active nystatin-triamcin olone topical RxNorm: 964761 topical 04/04/20 Active Medication Administered No Medication Administered data Immunizations Vaccine Codes Dose Date Status Covid-19 ([employer] mR NA, LNP-S, Bivalent Booster PF, 30 [...] 1.0 03/26/2010 Zoster CVX: 121 1.0 03/26/2010 Results Observation Observation Code Item Item Code Result Date Service Location Basic Metabolic Panel [facility]15 Sodium 2951-2 143 mmol/L 04/08/20 23 Unknown Basic Metabolic Panel [facility]15 POTASSIUM ([facility]) 2823-3 4.2 mmol/L 04/08/20 23 Unknown Basic Metabolic Panel [facility]15 UREA NITROGEN ([facility]) 22.7 mg/dL 04/08/20 23 Unknown Basic Metabolic Panel [facility] CHLORIDE ([facility]) 107 mmol/L 04/08/20 23 Unknown Basic Metabolic Panel [facility]15 CO2 ([facility]) 23 mmol/L 04/08/20 23 Unknown Basic Metabolic Panel [facility]15 ANION GAP ([facility]) 13 mmol/L 04/08/20 23 Unknown Basic Metabolic Panel [facility]15 Creatinine 2160-0 0.90 mg/dL 04/08/20 Unknown Basic Metabolic Panel [facility]15 Calcium 40190-2 9.0 mg/dL 04/08/20 Unknown Basic Metabolic Panel [facility]15 GLUCOSE ([facility]) 91 mg/dL 04/08/20 Unknown Basic Metabolic Panel LAB15 GFR, ESTIMATE 68432-6 63 mL/min/1.7 3m2 04/08/20 Unknown Reason For Visit No Reason For Visit data Plan of Care Planned Activity Notes Codes Status Date Appointment: Glenna Salamanca WPtel: [address] [place], [place] [id number] [facility] 02/23/2023 Instructions Comment Date Pat has resided with her hus band at [facility] since 12/2021, previously lived in [place], [place]. Patient grew up in [place]. Has 3 daughters.PMH: Chronic ulceration of right leg, history of cellulitis of right leg, ruptured cerebral aneurysm s/p syncope, HTN, HLD, osteoporosis, osteoarthritis, post herpetic neuralgia, varicose veins, chronic pain disorder, trigger finger release of right thumb, presbyopia, collagenous collitis, and basal cell carcinoma.Primary contact: Gloria White (Daughter)Code Status: DNR/SelectLab Schedule: Mar/SepSpecialists: [facility] Colon[facility]py (2013), Mammogram (06/2020), SLUMS / (09/2022)Family does not want patient managed on oxycodone for chronic pain syndrome, has been on in past 04/05/2023
--- OUTSIDE RECORDS SUMMARY | 2023-04-13 15:01 | XMS_ITS | CCD ---
Author Name Shawanda Leahy Address [address] [place] [address] Phone Organization [facility] Phone Care Team Providers Care Engineer Third Assistant Name Role Phone Shawanda Leahy Primary Care Provider Unava ilable Unavailable Chronic Care Management Unavaila ble Summary Purpose DataExchange Insurance Providers Payer name Policy type / Coverage type Covered alliance party ID Effective Begin Date Effective End Date Medicare [place] Medicare Part B [id number] Unknown [place] Medicare Part B [id number] Unk nown Family history Runs in the family Diagnosis Age At Onset Coronary Artery Disease (CAD) Unknown Father Diagnosis Age At Onset Thyroid Unknown Mother Diagnosis Age At Onset Diabetes Unknown Social History Social History Element Codes Description Effec tive Dates Marital status Unknown 02/21/[address]: 3022513 Former smoker Quit 1984 02/21/[address]: 417331131 No Alcohol Consum ption 02/21/2023 Allergies, Adverse Reactions, Alerts Substance Reaction Codes Entered Date Inactivated Date Status tramadol RxNorm: 57039 04/05/2023 No Inactive Librado e Active Sulfa [...] ICD-9: 401.9 02/23/2023 Active Mammogram normal ICD-10: [id number] ICD-9: V72.5 02/23/2023 Active Osteoporosis ICD-10: M81.0 [...] Fill Instructions nabumetone 500 mg tablet RxNorm: 592779 Take 1 Tablet(s) Oral QAM every morning with 750mg tablet to equal 1,250mg 04/05/20 23 023 Active Senokot-S 8.6 mg-50 mg tablet RxNorm: 9308291 Take 1 Tablet(s) Oral BID as needed for constipation 04/04/20 No Stop Date Active acetic acid 0.25 % irrigation solution RxNorm: 529065 Irrigation use as directed soaking wounds daily for 10 min 04/04/20 23 No Stop Date Active triamcinolone acetonide 0.1 % topical cream RxNorm: 1254826 Topical apply topically w/nystatin to affected area daily PRN 04/04/20 23 No Stop Date Active nabumetone 750 mg tablet RxNorm: 582239 Take 1 Tablet(s) Oral BID 02/24/20 Active mirtazapine 7.5 mg tablet RxNorm: 488898 Take 1 Tablet(s) Oral QHS every night at bedtime 02/24/20 Active fluticasone propionate 50 mcg/actuation nasal spray,suspension RxNorm: 5294179 [place] 1 [place] Nasal BID both nostrils 02/24/20 Active atorvastatin 20 mg tablet RxNorm: 219841 Take 1 Tablet(s) Oral QHS every night at bedtime QD - Daily 02/24/20 Active tramadol 50 mg tablet RxNorm: 818550 Give 1 Tablet(s) Oral TID as needed for pain 02/24/20 Active amlodipine 5 mg tablet RxNorm: 981767 Take 1 Tablet(s) Oral QD 02/24/20 Active gabapentin 600 mg tablet RxNorm: 926923 Take 1 Tablet(s) Oral TID 02/24/20 Active furosemide 20 mg tablet RxNorm: 452888 Take 1 Tablet(s) Oral QD 02/24/20 Active Calcium 600 + D(3) 600 mg-10 mcg (400 unit) tablet RxNorm: 002660 Take 1 Tablet(s) Oral QD 02/24/20 Active methocarbamol 500 mg tablet RxNorm: 700537 Take 1 Tablet(s) Oral TID as needed 02/24/20 No Stop Date Active lisinopril 30 mg tablet RxNorm: 452780 Take 1 Tablet(s) Oral QD 02/24/20 024 Active finasteride 5 mg tablet RxNorm: 951634 Take 1/2 Tablet(s) Oral QD 02/24/20 Active diclofenac 1 % topical gel RxNorm: 407770 Apply 2 Application Topical QID 02/24/20 Active alendronate 70 mg tablet RxNorm: 794724 Take 1 Tablet(s) Oral QW once a week in the morning with a full glass of water, 30 minutes prior to any food, sit up for 30 minutes after administration 02/24/20 Active dx: osteoporosis acetaminophen 500 mg tablet RxNorm: 483647 Take 1 Tablet(s) Oral TID /fever 02/24/20 024 Active Colace 2-In-1 8.6 mg-50 mg tablet RxNorm: 2707213 Take 1 Tablet(s) Oral BID as needed 02/24/20 Inactive Thera-M oral RxNorm: oral 02/24/20 Active nystatin-triamcin olone topical RxNorm: 733076 topical 04/04/20 Active Medication Administered No Medication Administered data Immunizations Vaccine Codes Dose Date Status Covid-19 (Apparent mR NA, LNP-S, Bivalent Booster PF, 30 [...] Date SYS BP LESS 140 CPT-4: G8752 04/05/2023 MUELLER BP LESS 90 CPT-4: G8754 04/05/2023 Vital Signs Date Vital 04/05/2023 Blood Pressure 1: 115/65 Code: 8480-6 Heart Rate 1: 84 bpm Code: 8867-4 Respiratory Rate: 18 bpm Temperature: 36.2 (C) / 97.1 (F) Reason For Visit No Reason For Visit data Encounters Encounter Performer Location Location Address Codes Date ([address]) Home or Residence Visit Est Pt - Moderate Level, 40 mins Diagnosis: Osteoarthritis[I CD10: M19.90] Diagnosis: Chronic ulcer of right leg[ICD10: L97.919] Diagnosis: Dementia[ICD10: F03.90] Diagnosis: Chronic pain disorder[ICD10: G89.4] Shawanda Salamanca [place] [address] CPT-4: 86175 04/05/2023 Plan of Care Planned Activity Notes Codes Status Date Patient Education: Patient Medication Summary Completed 04/05/2023 Patient Education: Influenza Vaccine Completed 04/05/2023 Patient Education: Dementia Complete d 04/05/2023 Appointment: Glenna Salamanca WPtel: [address] [place], [place] [phone] [employer] 02/23/2023 Instructions Comment Date Pat has resided with her hus band at [facility] since 12/2021, previously lived in [place], [place]. Patient grew up in [place]. Has 3 daughters.PMH: Chronic ulceration of right leg, history of cellulitis of right leg, ruptured cerebral aneurysm s/p syncope, HTN, HLD, osteoporosis, osteoarthritis, post herpetic neuralgia, varicose veins, chronic pain disorder, trigger finger release of right thumb, presbyopia, collagenous collitis, and basal cell carcinoma.Primary contact: Gloria White (Daughter)Code Status: DNR/[facility] Schedule: Mar/SepSpecialists[facility] Mammogram (06/2020), SLUMS 13/ (09/2022)Family does not want patient managed on oxycodone for chronic pain syndrome, has been on in past 04/05/2023 Chronic Pain - Patient requesting nabumatone to be increased. Recommended max dosing is 2,000mg/day. Patient currently managed on 1,500mg/day. Counseled patient on risks of using NSAIDs with bleeding and kidney function concerns. Patient understands although is persistent for the increase in medication. Most recent BMP shows stable kidney function from 10/2022. Plan to increase nabumatone to 1250mg QAM and 750mg QPM as well as recheck BMP for kidney monitoring. Chronic ulcer of right leg - Continues same wound regimen. Could not get in at wound clinic this week. Still being managed by SN. Nursing and patient report improvement of wounds. Neurocognitive Disorders - Repeats self often throughout exam. Becomes agitated with . No new cognitive concerns from nursing staff. Continue to monitor in AL setting. also has dementia, expect gradual decline and possible move to in the future. As of now, patient is not a safety risk to herself or others. Osteoarthritis - See chronic pain plan . 04/05/2023
== END 2023-04-13 14:56 | disposition home or self-care (01) ==
LOC: WOUND 14:55
PROVIDERS: Visit Provider Surgery
DX: I87.331 Chronic venous hypertension (idiopathic) with ulcer and inflammation of right lower extremity (principal); L97.818 Non-pressure chronic ulcer of other part of right lower leg with other specified severity
CPT/HCPCS: 99212